=== PATIENT | male | born 1960 | race Caucasian/White ===

== ENCOUNTER 2016-10-13 16:55 | Inpatient (IN) ==
[2016-10-13] MEDS ORDERED: ATIVAN ONE (17:24)
[2016-10-13] MEDS ORDERED: ATIVAN IV ONE (17:34)
[2016-10-13 18:14] LABS: BASO% 0.3 % (0.0-0.8); HEMATOCRIT 43.3 % (42.0-52.0); HEMOGLOBIN 15.2 g/dL (14.0-18.0); IMM GRAN# 0.06 X1000 (0.0-0.04); IMM GRAN% 0.3 % (0.0-0.5); LYMPH% 8.4 % (20.5-51.1); MANUAL DIFF NEEDED? NO; MCH 32.1 PG (27-31); MCHC 35.1 g/dL (33-37); MCV 91.4 FL (81-99); MONO# 1.87 X1000 (0.11-0.59); MONO% 8.7 % (1.7-9.3); MPV 9.8 FL (7.4-10.4); NEUT% 82.3 % (42.2-75.2); PLT 188 X1000 (130-400); RBC 4.74 XMIL (4.7-6.1)
[2016-10-13 19:01] LABS: AGAP 27; ALBUMIN 3.3 g/dL (3.5-5.0); ALKALINE PHOSPHATASE 124 U/L (32-122); BUN 3 mg/dL (8-22); CALCIUM 9.1 mg/dL (8.8-10.2); CHLORIDE 80 mmol/L (98-107); COSMO 244; GOT 44 U/L (10-34); GPT 19 U/L (10-44); POTASSIUM 3.3 mmol/L (3.5-5.1); SODIUM 121 mmol/L (136-145); TCO2 14 mmol/L (25-35); TOTAL BILIRUBIN 1.12 mg/dL (0.20-1.00); TOTAL PROTEIN 8.1 g/dL (6.3-8.3)
[2016-10-13] MEDS ORDERED: KEPPRA 1,000 MG in NS 100 ML IV ONE (19:51)
[2016-10-13] MEDS ORDERED: ZOFRAN IV ONE (19:51)
[2016-10-13] MEDS ORDERED: MORPHINE IV ONE (19:51)
[2016-10-13 20:26] LABS: URINE CULTURE NEEDED? NO; URINE MICRO REVIEW NEEDED? NO; URINE SOURCE CLEAN CATCH
[2016-10-13 20:29] LABS: BILIRUBIN URINE NEGATIVE (NEGATIVE); BLOOD URINE NEGATIVE (NEGATIVE); COLOR ORANGE; GLUCOSE URINE NEGATIVE (NEGATIVE); LEUKOCYTES URINE NEGATIVE (NEGATIVE); NITRITE URINE NEGATIVE (NEGATIVE); PROTEIN URINE TRACE mg/dL (NEGATIVE); SP GRAVITY URINE 1.011; TURBIDITY URINE CLEAR (CLEAR); UROBILINOGEN URINE NORMAL (NORMAL)
[2016-10-13 20:31] LABS: UR EPITHELIAL CELLS <10 /HPF (<10); URINE BACTERIA NEGATIVE /HPF; URINE RBC <10 /HPF (<10); URINE WBC <10 /HPF (<10)
[2016-10-13 20:49] LABS: UR AMPHETAMINES QUAL NONE DETECTED (NONE DETECT); UR BARBITUATES QUAL NONE DETECTED (NONE DETECT); UR BENZODIAZEPIN QUAL NONE DETECTED (NONE DETECT); UR CANNABINOIDS QUAL NONE DETECTED (NONE DETECT); UR COCAINE QUAL NONE DETECTED (NONE DETECT); UR METHADONE QUAL NONE DETECTED (NONE DETECT); UR OPIATES QUAL NONE DETECTED (NONE DETECT); UR OXYCODONE QUAL NONE DETECTED (NONE DETECT); UR PCP QUAL NONE DETECTED (NONE DETECT)
[2016-10-13] MEDS ORDERED: ATIVAN IV PRN (21:20)
[2016-10-13] MEDS ORDERED: ZOFRAN IV PRN (21:20)
--- NOTE | 2016-10-13 21:33 | Diag Imaging Result Document ---
PROCEDURE NAME: HEAD W/O CONTRAST - 10/13/2016 CT HEAD WITHOUT CONTRAST: FINDINGS: A dose reduction protocol was used. No comparison exam. There are some atrophic changes which most prominently involve the frontal lobes. There is no evidence of intracranial hemorrhage, mass effect, midline shift, or hydrocephalus. There is no evidence of infarct, although acute infarcts may not be immediately visible. There is no skull fracture. There is thickening of the bony margins of the left maxillary and left frontal sinuses which suggest chronic sinusitis. There is mucosal thickening and fluid in the left maxillary sinus. The left frontal sinus appears clear. IMPRESSION: 1. No visible acute intracranial abnormality. No evidence of intracranial injury. No intracranial hemorrhage or mass effect. 2. Paranasal sinus disease noted, including apparent acute and chronic left maxillary sinusitis. Preliminary results were provided at 7:18 p.m. on 10/13/2016.
--- NOTE | 2016-10-13 21:38 | HISTORY AND PHYSICAL ---
PRIMARY CARE PHYSICIAN: Dr. Tomi Sher in [place]. CHIEF COMPLAINT: Status post fall. HISTORY OF PRESENTING ILLNESS: A 56-year-old male with a history of COPD had presented to emergency department after patient had a fall about 2 days ago. He states that he was going to the bathroom and somehow tripped over the carpet liner and landed on the post of the bed. He developed moderate amount of pain and subsequently the following day he had come to the emergency department. At ER he was evaluated and while waiting initially in the waiting room he developed some kind of seizure activity. Subsequently, he was stabilized with Ativan and started on Keppra. He was moderately confused at the time of my examination, however he had denied having any headache, fever, chills, chest pain, shortness of breath, hemoptysis or any weight changes but complained of the left arm hurting. PAST MEDICAL HISTORY: Includes COPD/emphysema and [place]. PAST SURGICAL HISTORY: None. ALLERGIES: No known drug allergies. CURRENT MEDICATIONS: As listed in the MAR. SOCIAL HISTORY: A 40 pack years history of smoking, history of alcohol use daily, last drink was about a day and half ago. Denies any illicit drug use. FAMILY HISTORY: Positive for coronary disease in father. REVIEW OF SYSTEMS: Twelve point review of systems listed as in HPI. Other systems negative. PHYSICAL EXAMINATION: GENERAL: Cooperative, friendly male. He is resting more comfortably now. VITAL SIGNS: Temperature 98.1 degrees, pulse 135, respirations 20, blood pressure 164/103, he is saturating 96%. HEENT: Extraocular movements intact. PERRLA. NECK: No masses. CHEST: Bibasilar rales. CARDIOVASCULAR: Regular rate and rhythm. ABDOMEN: Soft. Positive bowel sounds. EXTREMITIES: Left upper extremity tenderness. NEURO: He is awake, alert, oriented x2. : No bladder distention. SKIN: Warm. LABORATORIES AND STUDIES: WBC 21.51, hemoglobin 15.2, hematocrit 42.3, platelets 188,000. Sodium 121, potassium 3.3, chloride 80, CO2 is 14, BUN is 3, creatinine 0.7, glucose is 152. Alcohol level is 0. ASSESSMENT: A 56-year-old male with a history of chronic obstructive pulmonary disease had presented to emergency department after he had a fall and developed left upper extremity pain. While initially sitting in the waiting room he developed seizure activity. He was brought to a room in the emergency department where he was stabilized with Ativan and started on Keppra. He had imaging done which did show he had a left humerus fractures. Due to his presenting symptoms, he will need hospitalization for further management. ASSESSMENT: 1. Status post mechanical fall. 2. Left humerus fracture. 3. Seizure activity secondary to alcohol withdrawal. 4. Chronic alcoholism. 5. Acute bronchitis. 6. Ongoing tobacco abuse. 7. Hyponatremia. PLAN: 1. Will admit patient to medical floor with telemetry. 2. The patient was put on a sling for his humerus fracture. 3. We will consult orthopedics. 4. We will give patient adequate pain control. 5. Put patient on seizure precautions and monitor for any kind of signs of alcohol withdrawal. 6. Will use Ativan p.r.n. for withdrawals or seizures. 7. We will check blood cultures and start patient on IV antibiotics. 8. We will monitor his electrolytes, make sure his sodium is improving. 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 10. We will put patient on DVT prophylaxis with SCD. 11. Will continue to follow and reassess. cc: Wyatt Chery MD MTDD
[2016-10-13] MEDS ORDERED: M.V.I.-12 10 ML, FOLIC ACID 1 MG, MAGNESIUM SULFATE 1 GM, THIAMINE 100 MG in NS 1,000 ML IV ONE (21:45)
[2016-10-13] MEDS ORDERED: MORPHINE IV PRN (21:45)
[2016-10-13] MEDS ORDERED: ROCEPHIN 1 GM/NS 1 GM/50 ML IVPB IV SCH (22:00)
[2016-10-14] MEDS: NS 1,000 ML IV SCH ×3 (00:16→23:08)
[2016-10-14] MEDS: ROCEPHIN 1 GM/NS 1 GM/50 ML IVPB IV SCH (00:22)
[2016-10-14] MEDS ORDERED: DUONEB (A & A) INH PRN (02:54)
[2016-10-14] MEDS ORDERED: TESSALON PO PRN (02:55)
[2016-10-14] MEDS: DUONEB (A & A) INH SCH ×4 (03:23→22:59)
[2016-10-14 07:02] LABS: MANUAL DIFF NEEDED? NO
[2016-10-14 07:09] LABS: BASO% 0.4 % (0.0-0.8); EOS# 0.04 X1000 (0.0-0.7); EOS% 0.4 % (0.0-10.0); HEMATOCRIT 41.8 % (42.0-52.0); HEMOGLOBIN 14.3 g/dL (14.0-18.0); IMM GRAN# 0.02 X1000 (0.0-0.04); IMM GRAN% 0.2 % (0.0-0.5); LYMPH# 1.34 X1000 (1.2-3.4); LYMPH% 11.9 % (20.5-51.1); MCH 31.6 PG (27-31); MCHC 34.2 g/dL (33-37); MCV 92.5 FL (81-99); MONO% 9.7 % (1.7-9.3); MPV 10.3 FL (7.4-10.4); NEUT% 77.4 % (42.2-75.2); PLT 165 X1000 (130-400); RBC 4.52 XMIL (4.7-6.1)
--- NOTE | 2016-10-14 08:03 | Diag Imaging Result Document ---
PROCEDURE NAME: ELBOW COMPLETE LEFT - 10/13/2016 X-RAY LEFT ELBOW 3 VIEWS, 10/13/2016: COMPARISON: None FINDINGS: Positioning is improper. No obvious fracture or dislocation. IMPRESSION: No obvious acute disease.
--- NOTE | 2016-10-14 08:04 | Diag Imaging Result Document ---
PROCEDURE NAME: HUMERUS-LEFT - 10/13/2016 X-RAY LEFT HUMERUS 4 VIEWS, 10/13/2016: COMPARISON: None. FINDINGS: There is a minimally impacted fracture of the surgical neck of the left humerus. There is also fragmentation of the greater tuberosity. No dislocation. IMPRESSION: Fracture of the shoulder.
[2016-10-14] MEDS: MUCINEX PO SCH ×2 (08:20→23:07)
[2016-10-14] MEDS ORDERED: NORCO-5 PO PRN (08:44)
--- NOTE | 2016-10-14 08:54 | Diag Imaging Result Document ---
PROCEDURE NAME: CHEST-PORTABLE - 10/13/2016 PORTABLE CHEST X-RAY: COMPARISON: None. FINDINGS: Lungs are hyperexpanded compatible with advanced COPD. There is some minimal infiltrate in the lateral right mid lung and at the left hilum. These are ill-defined. Heart size is normal. No pneumothorax or large effusion. IMPRESSION: Advanced COPD. Ill-defined bilateral infiltrates.
[2016-10-14 09:56] LABS: AGAP 12; ALKALINE PHOSPHATASE 102 U/L (32-122); BUN 4 mg/dL (8-22); CALCIUM 8.4 mg/dL (8.8-10.2); CHLORIDE 95 mmol/L (98-107); COSMO 267; GOT 37 U/L (10-34); GPT 15 U/L (10-44); POTASSIUM 3.7 mmol/L (3.5-5.1); SODIUM 135 mmol/L (136-145); TCO2 28 mmol/L (25-35); TOTAL BILIRUBIN 1.09 mg/dL (0.20-1.00); TOTAL PROTEIN 7.1 g/dL (6.3-8.3)
[2016-10-14] MEDS ORDERED: DILAUDID IV PRN (14:12)
--- NOTE | 2016-10-14 15:26 | PROGRESS NOTE ---
DATE: 10/14/2016 SUBJECTIVE: Patient reports moderate pain in the left arm. Denies any fever or chills. No more episodes of seizures. OBJECTIVE: Vital Signs: Temperature 97.9 degrees, heart rate 96, respiratory rate 19, blood pressure 104/73. O2 saturation 99% on room air. General Examination: This is a chronically ill appearing, frail, 56-year-old male, lying in bed, in no acute distress. HEENT: Head is normocephalic, atraumatic. Anicteric sclerae and pale conjunctivae. Mucous membranes moist. Neck: Supple. No jugular venous distention noted. No carotid bruits. No lymphadenopathy. No thyromegaly. Cardiovascular Examination: S1, S2 heard. No murmurs, gallops, or rubs. Regular rate and rhythm. Respiratory Examination: Coarse breath sounds and some wheezing, mostly noted in both pulmonary gonzalez. Patient is not using any accessory muscles or having work of breathing. Abdomen: Soft, nontender to palpation. Bowel sounds present. No organomegaly. Extremities: No clubbing, cyanosis, or edema. Peripheral pulses present in both legs. Neurological examination: Patient is alert and oriented x3. Able to move 4 extremities. Cranial nerves 2-12 grossly normal. LABORATORY DATA: White cell count 11.29, hemoglobin 14.3, hematocrit 41.8, platelets 165,000. Sodium 135, potassium 3.7, chloride 95, creatinine 0.6. ASSESSMENT AND PLAN: 1. Status post mechanical fall. 2. Left humerus fracture. 3. Seizure activity. 4. Chronic alcoholism. 5. Ongoing tobacco use. 6. Hyponatremia. The patient is admitted to the hospital because he had a fall and apparently he had an episode of seizure in the emergency room. Patient admitted to the hospital. Upon my evaluation he reported that he was using apparently Dilantin for few years for seizures and this medication was stopped but his primary care doctor. CT of the head was unremarkable for any hemorrhage. At this time, considering that this patient has had seizure in the past and now he started having 1, and considering that one option could be a tumor, we are going to do an MRI of the brain. Also, because of this chronic alcohol consumption, what we can do is to put this patient on Librium. I do not think that this patient had a seizure because of alcohol withdrawal, because this patient is not having any mild hand tremor. Not tachycardic. For seizures, we are going to provide Keppra 500 mg p.o. b.i.d. For ongoing tobacco abuse, the patient has been recommended to stop smoking. For hyponatremia, the patient has been hydrated. The sodium is 135 today. If MRI is okay and the patient is doing okay, we can send him home tomorrow. cc: Stevie Guerra MD
--- NOTE | 2016-10-14 15:43 | Diag Imaging Result Document ---
PROCEDURE NAME: MRI BRAIN W W/O CONTRAST - 10/14/2016 MRI BRAIN WITHOUT AND WITH INTRAVENOUS CONTRAST: COMPARISON: 10/13/2016. FINDINGS: There is advanced diffuse atrophy. There are simple bilateral subdural effusions. No evidence of intracranial mass or hemorrhage. No abnormal contrast enhancement. There is a tiny area of signal hyperintensity of the deep white matter on the right side, nonspecific. This is in the right cerebral hemisphere. No other areas of abnormal signal. There is sinusitis of the left maxillary sinus and frontal sinus. IMPRESSION: 1. Atrophy. Moderate bilateral subdural effusions. 2. Tiny nonspecific white matter hyperintensity in the right cerebral hemisphere. 3. Sinusitis.
[2016-10-15] MEDS: ROCEPHIN 1 GM/NS 1 GM/50 ML IVPB IV SCH (01:10)
[2016-10-15] MEDS: DUONEB (A & A) INH SCH ×3 (03:29→15:27)
[2016-10-15] MEDS: NS 1,000 ML IV SCH (05:55)
[2016-10-15] MEDS: MUCINEX PO SCH (08:00)
[2016-10-15 13:54] VITALS: BP 136/88
--- NOTE | 2016-10-15 14:05 | PROGRESS NOTE ---
DATE: 10/15/2016 SUBJECTIVE: Mr. Lopez is a 56-year-old male, who is complaining of continued arm pain, but he states that it is improving. OBJECTIVE: General: He is a well-developed, well-nourished male. He is alert and cooperative with the exam. Vital Signs: Stable. He is afebrile. There is some ecchymosis up the mid arm, and his arm is in a sling. His left arm is neurovascularly intact. He has full range of motion of his wrist. ASSESSMENT: Minimally displaced proximal humerus fracture. PLAN: He can be discharged when he is medically stable and he can follow up with Dr. Patel in the office upon discharge. Dictated by DIANNE Lott for Justo Patel MD cc: DIANNE Lott MD
--- NOTE | 2016-10-15 14:22 | CONSULTATION ---
DATE OF CONSULTATION: 10/15/2016 ADMITTING PHYSICIAN: Dr. Stevie Salazar. CONSULTING PHYSICIAN: Dr. Jamal Patel. CHIEF COMPLAINT: Left arm pain. HISTORY OF PRESENT ILLNESS: Mr. Lopez is a 56-year-old, white male who has exterior experienced left arm pain status post a fall at home three days ago. He reports that this was a mechanical event. He reported to the emergency department were examination with x-ray revealed a left proximal humerus fracture. Denies any associated injuries. PRIMARY CARE PROVIDER: Tomi Sher. ALLERGIES: No known drug allergies. PAST MEDICAL HISTORY: 1. Chronic obstructive pulmonary disease. 2. History of coronary artery disease. 3. Osteoarthritis. 4. History of left upper extremity blood clots. PAST SURGICAL HISTORY: None. SOCIAL HISTORY: The patient is a long-term smoker. He has a history of alcohol use. HOME MEDICATIONS: 1. Aspirin 325 mg daily. 2. Tessalon Perles 1 caplet by mouth 3 times a day as necessary. 3. Nebulized Albuterol 2.5 mg inhaled every 4 hours as necessary. REVIEW OF SYSTEMS: HEENT: No known history of stroke or cerebrovascular disease. Cardiac: He has a history of coronary ischemia status post an event of respiratory insufficiency. Denies chest pain, pressure, or other anginal equivalents. No history of any cardiac intervention. Pulmonary: The patient is a long-term smoker with a history of chronic obstructive pulmonary disease. Gastrointestinal: No known weight loss or weight gain. Denies nausea, vomiting, diarrhea, or constipation. Genitourinary: Denies kidney or bladder infection or dysfunction. Musculoskeletal: He is here today for a left proximal humerus fracture. Other: He has a history of daily alcohol use. PHYSICAL EXAMINATION: General: The patient is resting comfortably in bed. He is articulate and able answer all questions fully. HEENT: Head is normocephalic, atraumatic. Pupils are equal, round, react to light. Nares are patent. Throat without exudate. Neck: Supple. Heart: Regular rate and rhythm. No murmurs, gallops, or rubs. Lungs: Clear to auscultation bilaterally. Gastrointestinal: Bowel sounds are present. The abdomen is nontender. Genitourinary: Not examined. Neurological: Gross motor function is intact as well as sensory to soft touch of the left upper extremity. He has a good peripheral pulse. He does have some ecchymosis above the left elbow. IMPRESSION: Left proximal humerus fracture with minimal displacement. PLAN: Recommend nonsurgical intervention with left shoulder immobilization and follow up as an outpatient. Thank you for including us in the care of Mr. Lopez. We will continue to follow him with you as necessary. Dictated by DIANNE Watkins for Justo Patel MD cc: DIANNE Watkins MD
[2016-10-15] MEDS ORDERED: NORCO-7.5 PO PRN (14:50)
[2016-10-15] MEDS ORDERED: AUGMENTIN PO SCH (21:00)
--- NOTE | 2016-10-15 22:24 | DISCHARGE SUMMARY ---
ADMISSION DATE: 10/13/2016 DISCHARGE DATE: 10/15/2016 CONSULTATIONS: Justo Patel MD with Orthopedics. PERTINENT PROCEDURES: 1. Head CT showed no visible acute intracranial abnormality. No intracranial injury, hemorrhage or mass effect. Paranasal sinus disease noted including apparent acute and chronic left maxillary sinusitis. 2. Elbow x-ray showed no obvious acute disease. 3. Humerus x-ray showed fracture of the shoulder. 4. Chest x-ray showed advanced COPD with ill-defined bilateral infiltrates. 5. Brain MRI showed atrophy mild bilateral subdural effusions, tiny nonspecific white matter hyperintensity in the right cerebral hemisphere, sinusitis. DISCHARGE DIAGNOSES: 1. Minimally displaced proximal humerus fracture. The patient is okay to be discharged per Orthopedics and follow up with Dr. Patel in the office. 2. Seizure activity secondary to alcohol withdrawal. Stable. 3. Chronic alcoholism. The patient has been educated daily on cessation. 4. Acute bronchitis. Aware. 5. Ongoing tobacco abuse. The patient received daily education on cessation as well as the means to quit. 6. Hyponatremia improved. HOSPITAL COURSE: Mr. Lopez is a 56-year-old male who has a history of chronic alcoholism, ongoing tobacco use, COPD, emphysema and [place] who was admitted to the hospital because the patient fell and apparently had an episode of a seizure in the emergency room. The patient was admitted to the hospital with an orthopedic consult. The patient reported that he was using Dilantin for a few years for seizures and the medication was stopped by his primary care doctor. A CT of the head was unremarkable, it did not show any hemorrhage. They did do an MRI of the brain that did show atrophy and bilateral subdural effusions, tiny nonspecific white matter hyperintensities in the right cerebral hemisphere along with sinusitis. The patient also suffers from a minimally displaced proximal humerus fracture. Orthopedics has cleared him for discharge when he was medically stable and to follow up with Dr. Patel in the office. Due to the patient's chronic alcohol consumption the patient was placed on Librium and closely watched for alcohol withdrawal. He was placed on Keppra. For his hyponatremia he was slowly rehydrated with improvement in his sodium. The patient has been educated daily on cessation of alcohol as well as tobacco. Dr. Deluca has assessed the patient. He feels that he is appropriate for discharge today. He will be going home on Augmentin 875 for his sinusitis and ill-defined infiltrates on chest x-ray. VITAL SIGNS AT TIME OF DISCHARGE: Temperature 97.8 degrees, heart rate 98, respirations 16, blood pressure 136/80, O2 is 100% on room air. DISCHARGE DIET: Healthy heart. DISCHARGE MEDICATIONS: 1. Albuterol nebulizer 2.5 mg inhaled q.4 hours. 2. Augmentin 875 mg p.o. q.12 hours. 3. Aspirin 325 mg p.o. daily. 4. Tessalon Perles 1 cap p.o. t.i.d. p.r.n. 5. [place] 7.5/325, 1 each p.o. q.6 hours p.r.n. pain. 6. Claritin 10 mg p.o. daily. FOLLOWUP: The patient is being discharged home. He can follow up with his primary care physician, Dr. Tomi Sher, in 7-10 days. The patient is to take all his antibiotics again. He has been educated on daily cessation of alcohol and tobacco. Patient can return to the ED for any worsening of symptoms. DISCHARGE TIME: Greater than 30 minutes. Dictated by VIRGILIO Chavarria for Ky Deluca MD cc: MD Tomi Benavides MD
[2016-10-16] MEDS ORDERED: CLARITIN PO SCH (09:00)
--- NOTE | 2016-10-23 22:48 | ED EKG INTERP ---
This chart was entered by Giovanni Roberson Scribe, acting as scribe for Jelani López MD. EKG Interpretation - EKG Time of EKG reading by physician:: 17:08 EKG Read and Signed by:: Pedro Melvin EKG Interpretation (*Must complete 3 of following elements*): Abnormal (R atrial enlargement; Nonspecific ST abnormality) Rate: 138 Rhythm: Sinus tachycardia This chart was documented by the indicated scribe, (Giovanni Roberson Scribe) and accurately reflects the services I performed and decisions made by me, Jelani Guillory MD, as attested by the provider's signature.
--- NOTE | 2016-10-23 22:48 | PROVIDER DOCUMENTATION ---
This chart was entered by Giovanni Roberson Scribe, acting as scribe for Jelani López MD. HPI-Musculoskeletal Pain/Inj - GENERAL Chief Complaint: Seizure Stated Complaint: FALL/LEFT SHOULDER PAIN Time Seen by Provider: 10/13/16 17:45 Source: patient - HX OF PRESENT ILLNESS-MUSKULOSKELTAL Nature of Presenting Problem: Pt is a 56 yom who presents to ER with CC of LUE (elbow) pain after falling 2 days ago. Further details were not specified about pt's fall due to pt's having a seizure while in ED lobby (given ativan and immediately taken to CT). After questioning, pt admits to drinking 6-8 beers per day, and has been drinking like this for "a long kranthi." Pt's labs revealed decreased sodium levels, Dr. Jeffy vasquez discussed pt's low sodium and the problems associated with low sodium, and pt reports that he's had seizures "for years." Pt reports that he was originally put on dilantin for his seizures, but was taken to 2 years ago for double pna and was taken off of his dilantin. Quality of Pain: reports: aching, sharp, throbbing Severity in ED: moderate Onset/Duration: 2 days ago Timing: still present Any recent injury?: Yes (fell) Locality of Occurance: Home Similar Symptoms Previously?: Yes Recently seen or treated by another doctor?: No - FALL INJURY Location of Pain/Injury: reports: upper extremity (LUE (shoulder)) Pain Radiation: reports: no radiation Reason for Fall: reports: unknown Loss of Consciousness: no loss of consciousness Injury Associated Symptoms: reports: arm pain, back/neck pain, joint pain, muscle aches. denies: chest pain, diaphoresis, headaches, nausea, puncture wound, shortness of breath, unable to bear weight, vomiting, weakness, trouble walking Review of Systems - Adult - REVIEW OF SYSTEMS - ADULT Constitutional: denies: chills, fever, fatique, night sweats, weight gain, weight loss Eyes: reports: no symptoms reported Ears, Nose, Mouth & Throat: reports: no symptoms reported Cardiovascular: reports: no symptoms reported Respiratory: reports: no symptoms reported Gastrointestinal: reports: no symptoms reported Genitourinary: reports: no symptoms reported Musculoskeletal: reports: joint pain, joint swelling, muscle aches, muscle weakness. denies: bone pain, back pain, frequent leg cramps, neck pain Integumentary: reports: no symptoms reported Neurological: reports: seizure. denies: ataxia, dizziness/vertigo, headache/ migraines, loss of balance, numbness, paresthesia, slurred speech, syncope, tremors Psychiatric: reports: no symptoms reported Endocrine: reports: no symptoms reported Hematologic/Lymphatic: reports: no symptoms reported Allergic/Immunologic: reports: no symptoms reported All Other Systems: Reviewed and Negative Past History - Adult - PAST MEDICAL HISTORY-ADULT Review of Records: reports: Nursing Assessment Review, Medications Reviewed - IMMUNIZATION STATUS Childhood Immunizations: See Nurse Assessment Flu Vaccine: See Nurse Assessment Physical Exam-Injury Related - Physical Exam-Injury Related Initial Vital Signs Reviewed: Yes General Appearance: appears well, alert, mild distress, anxious, other (Pt smells of urine; seizure in ER waiting room) Eyes: PERRL/EOMI, pink conjunctivae Head, Ears, Nose, Mouth & Throat: normocephalic/atraumatic, moist mucous membranes, normal ENT inspection, TMs normal, pharynx normal. negative: pharyngeal erythema, tonsillar exudate, TM abnormal Neck: non-tender, full range of motion, supple, normal inspection. negative: C- spine tenderness, decresed ROM, ecchymosis, limited range of motion, muscle spasm, pain on movement, swelling, vertebral point tenderness Respiratory: chest non-tender, lungs clear, normal breath sounds, no pleuratic chest pain, no respiratory distress, no accessory muscle use. negative: crackles, rales, rhonchi, stridor, wheezing Cardiovascular: normal peripheral pulses, tachycardia. negative: regular rate, rhythm, bradycardia, irregularly irregular Abdominal Exam: normal bowel sounds, non tender, soft, no organomegaly, no pulsatile mass. negative: tenderness Back Exam: normal inspection, no CVA tenderness, no vertebral tenderness. negative: CVA tenderness, decreased range of motion, ecchymosis, muscle spasm, swelling, vertebral tenderness Extremity: normal gait, normal inspection, no pedal edema, no calf tenderness, normal capillary refill, deformity, swelling, tenderness (LUE). negative: normal range of motion, non-tender, erythema, inflammation Integumentary: normal color, warm/dry. 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 negative: facial droop, focal weakness, motor weakness, sensory deficit Psych/Mental Status: normal mood/affect, normal thought content, normal thought process, oriented x 3 Progress - PLAN OF CARE/RESULTS Progress/Plan/Lab Results: Orders Category Date Time Status Admit - [facility] Routine AdmDCTranf 10/13/16 21:20 Ordered Activity - Up with Assistance ORDERED Care 10/13/16 21:20 Active Apply Mechanical Device [QM] ORDERED Care 10/13/16 21:20 Completed Arm Sling DIRECTED Care 10/13/16 19:52 Completed IV [Saline Loc] NOW Care 10/13/16 17:46 Completed Intake and Output-Strict ORDERED Care 10/13/16 21:20 Active Vital Signs Order Q 8-HR ASSESS Care 10/13/16 21:20 Active Heart Healthy Diet Diet 10/13/16 20:08 Completed CHEST-PORTABLE [RAD] Stat Exams 10/13/16 19:52 Completed ELBOW COMPLETE LEFT [RAD] Stat Exams 10/13/16 18:22 Completed HEAD W/O CONTRAST [CT] Stat Exams 10/13/16 17:52 Completed HUMERUS-LEFT [RAD] Stat Exams 10/13/16 18:38 Completed ALCOHOL BLOOD Stat Lab 10/13/16 17:47 Completed CBC WITH DIFF [HEME] Routine Lab 10/14/16 06:55 Completed CBC WITH ELECTRONIC DIFF [HEME] Stat Lab 10/13/16 17:47 Completed CK TOTAL [CHEM] Stat Lab 10/13/16 17:47 Completed COMPREHENSIVE METABOLIC PANEL [CHEM] Stat Lab 10/13/16 17:47 Completed MAGNESIUM [CHEM] Stat Lab 10/13/16 17:47 Completed TROPONIN T Stat Lab 10/13/16 17:47 Completed UA NIMS W/REFLEX CULT [URINALYSIS] Stat Lab 10/13/16 20:19 Completed URINE DRUG SCREEN Stat Lab 10/13/16 20:19 Completed 0.9% Sodium Chloride Inj [Ns] 1,000 ml Med 10/13/16 21:20 Discontinued IV 100 mls/hr Levetiracetam [Keppra] 1,000 mg Med 10/13/16 19:51 Discontinued 0.9% Sodium Chloride Inj [Ns] 100 ml IV NOW Lorazepam [Ativan] Med 10/13/16 17:34 Discontinued 1 mg IV NOW ONE Lorazepam [Ativan] Med 10/13/16 21:20 Discontinued 1 mg IV Q4H PRN PRN Lorazepam [Ativan] Med 10/13/16 17:24 Discontinued 2 mg .ROUTE .STK-MED ONE Morphine Med 10/13/16 19:51 Discontinued 4 mg IV NOW ONE Ondansetron [Zofran] Med 10/13/16 19:51 Discontinued 4 mg IV NOW ONE Ondansetron [Zofran] Med 10/13/16 21:20 Discontinued 4 mg IV Q4H PRN PRN Telemetry [OM.EQ] Routine Oth 10/13/16 21:20 Active Transfer/Admit Order [TRANSFER] Routine Transfer 10/13/16 20:06 Completed Result Diagrams: 10/14/16 06:55 10/14/16 08:00 - XRAY 1 XRAY: Left XRAY Study: Shoulder (Proximal humerus fx), Elbow (Normal) Impression: See EMR Report XRAY Interpretation: See Report - CT/MRI 1 CT Study: Head Impression: See EMR Report (No visible acute intracranial abnormality; No hemorrhage, no mass effect; Paranasal sinus disease noted - Dr. Martin ( Radiologist)) CT Results: See report - CONSULTS/PCP/HOSPITALIST Notification #1 *Consult/PCP/Hospitalist*: Dr. Chery (Hospitalist) Time Discussed: 19:47 Consult Disposition: Admit Departure - Departure Time of Disposition Decision: 19:50 DIAGNOSIS: Hyponatremia, Withdrawal symptoms, alcohol, Proximal humeral fracture, Seizures Disposition: ADMITTED INPATIENT 09 Certified Medical Emergency: Emergent Condition: Stable - Critical Care Note This patient required my direct & personal management of CC.: No This chart was documented by the indicated scribe, (Giovanni Roberson Scribe) and accurately reflects the services I performed and decisions made by me, Jelani Guillory MD, as attested by the provider's signature.
== END 2016-10-15 18:19 | disposition home or self-care (01) ==
LOC: ED 16:55 → SUATTDRO 20:42 → 3N 20:42
PROVIDERS: ATTEND Internal Medicine